=== PATIENT | female | born 1985 | race African-American/Black ===

== ENCOUNTER 2018-01-09 13:20 | Emergency (ER) | payer BC | END 2018-01-09 13:56 | disposition home or self-care (01) | LOC: ERS 13:20 | DX: M62.830 Muscle spasm of back (principal); V43.52XA Car driver injured in collision with other type car in traffic accident, initial encounter | CPT/HCPCS: 99283 ==

== ENCOUNTER 2022-10-14 09:52 | Outpatient (CLI) | payer BC | END 2022-10-14 09:53 | disposition home or self-care (01) | LOC: BICMAMMO 09:52 | PROVIDERS: ATTEND Family Medicine | DX: N63.21 Unspecified lump in the left breast, upper outer quadrant (principal) | CPT/HCPCS: 77066; G0279 ==

== ENCOUNTER 2023-10-13 10:45 | Outpatient (CLI) | payer BC | END 2023-10-13 10:46 | disposition home or self-care (01) | LOC: ULT 10:45 | PROVIDERS: ATTEND Family Medicine | DX: N92.0 Excessive and frequent menstruation with regular cycle (principal); D25.9 Leiomyoma of uterus, unspecified | CPT/HCPCS: 76856 ==